=== PATIENT | male | born 1975 | race Caucasian/White ===

== ENCOUNTER 2022-05-09 17:59 | Emergency (ER) | payer SELFPAY ==
[~2022-05-09] VITALS: Ht 180.3 cm; Wt 111.9 kg
[2022-05-09 19:31] LABS: Urine Bacteria NONE SEEN /hpf (None Seen); Urine Blood Negative /uL (Negative); Urine Hyaline Cast FEW /lpf (0 - 2); Urine Mucus FEW (None Seen); Urine Specific Gravity 1.016 (1.001-1.035); Urine WBC <1 /hpf (0 - 3)
[2022-05-09 19:53] LABS: Basophils # (auto) 0 10 ^3/uL (0-0.2); Basophils % (auto) 0.8 % (0.0-2.0); Eosinophils # (auto) 0 10 ^3/uL (0-0.8); Eosinophils % (auto) 0.5 % (0.0-7.0); Hematocrit 41.3 % (41.0-53.0); Hemoglobin 14.4 g/dL (13.5-17.5); Lymphocytes # (auto) 1.2 10 ^3/uL (0.4-5.4); Lymphocytes % (auto) 22.6 % (10.0-50.0); Mean Corpuscular Hemoglobin 32.4 pg (28.0-32.0); Mean Corpuscular Hgb Conc. 34.8 g/dL (32.0-36.0); Mean Corpuscular Volume 92.9 fL (80.0-100.0); Monocytes # (auto) 0.5 10 ^3/uL (0-1.3); Monocytes % (auto) 8.5 % (0.0-12.0); Neutrophils # (auto) 3.7 10 ^3/uL (1.6-8.6); Neutrophils % (auto) 67.6 % (37.0-80.0); Nucleated Red Blood Cells % 0.1 %; Red Blood Cells 4.44 10^6/uL (4.5-5.90); Red Cell Distribution Width 12.5 % (11.8-14.3); White Blood Cell 5.5 10^3/uL (4.4-10.8)
[2022-05-09] MEDS ORDERED: IOHEXOL 350 MG/ML 100ML IJ ONE (20:03)
[2022-05-09 20:08] LABS: Albumin 3.7 g/dL (3.4-5.0); Calcium 9.3 mg/dL (8.5-10.1); Potassium 3.9 mmol/L (3.5-5.1)
[2022-05-09 20:12] LABS: BUN/Creatinine Ratio 12.2; Bilirubin, Total 0.6 mg/dL (0.2-1.0); Total Protein 7.2 g/dL (6.4-8.2)
[2022-05-09] MEDS ORDERED: ONDA-144 PO (20:38)
[2022-05-09] MEDS ORDERED: HYDR1TAB97 PO (20:38)
[2022-05-09] MEDS ORDERED: ONDANSETRON HCL 4 MG/2 ML VIAL BC ONE (20:45)
[2022-05-09] MEDS ORDERED: HYDROcodone-ACET 5/325MG TAB PO ONE (20:45)
[2022-05-09 23:47] VITALS: BP 130/60
== END 2022-05-09 22:53 | disposition home or self-care (01) ==
LOC: ER 17:59
DX: K42.9 Umbilical hernia without obstruction or gangrene (principal); R11.2 Nausea with vomiting, unspecified; R19.7 Diarrhea, unspecified
CPT/HCPCS: 36415; 74177; 80053; 81001; 83605; 83690; 85025; 99285; Q9967

== ENCOUNTER 2024-04-29 10:28 | Inpatient (IN) | payer MEDICAID, OTHER ==
[~2024-04-29] VITALS: Ht 182.9 cm; Wt 93.1 kg
[~2024-04-29 10:28] MED LIST: HYDR1TAB97 PO; ONDA-144 PO
[2024-04-29 11:53] LABS: Basophils # (auto) 0.1 10 ^3/uL (0-0.2); Eosinophils # (auto) 0.2 10 ^3/uL (0-0.8); Eosinophils % (auto) 2.1 % (0.0-7.0); Hematocrit 42.8 % (41.0-53.0); Hemoglobin 14.8 g/dL (13.5-17.5); Lymphocytes # (auto) 1.9 10 ^3/uL (0.4-5.4); Lymphocytes % (auto) 23.9 % (10.0-50.0); Mean Corpuscular Hemoglobin 30.9 pg (28.0-32.0); Mean Corpuscular Hgb Conc. 34.7 g/dL (32.0-36.0); Mean Corpuscular Volume 89.1 fL (80.0-100.0); Monocytes # (auto) 0.6 10 ^3/uL (0-1.3); Monocytes % (auto) 7.2 % (0.0-12.0); Neutrophils # (auto) 5.3 10 ^3/uL (1.6-8.6); Neutrophils % (auto) 65.8 % (37.0-80.0); Nucleated Red Blood Cells % 0.1 %; Red Cell Distribution Width 13.2 % (11.8-14.3)
[2024-04-29 12:10] LABS: Alanine Aminotransferase 42 U/L (7-40); Albumin 4.3 g/dL (3.2-4.8); Alkaline Phosphatase 85 U/L (46-116); Anion Gap 6 (5-15); Aspartate Aminotransferase 18 U/L (13-40); BUN/Creatinine Ratio 7.3 (10.0-20.0); Bilirubin, Total 0.5 mg/dL (0.2-1.0); Blood Urea Nitrogen 7 mg/dL (9-23); Calcium 9.6 mg/dL (8.7-10.4); Carbon Dioxide 28 mmol/L (20-30); Chloride 107 mmol/L (98-107); Glucose 120 mg/dL (74-106); Lipase 47 U/L (12-53); Potassium 4.4 mmol/L (3.5-5.1); Sodium 141 mmol/L (136-145); Total Protein 7.1 g/dL (5.7-8.2)
[2024-04-29] MEDS: PANTOPRAZOLE 40 MG/10 ML VIAL INJ IV ONE (13:04)
[2024-04-29] MEDS: ONDANSETRON HCL 4 MG/2 ML VIAL IV ONE (13:04)
[2024-04-29] MEDS: MORPHINE SULFATE 4 MG/ML SYR/VIAL IV ONE (13:05)
[2024-04-29] MEDS: SODIUM CHLORIDE 0.9% 500 ML IVB ONE (13:05)
[2024-04-29 13:25] VITALS: PULSE 84; RESP 18; O2SAT 98
[2024-04-29] MEDS ORDERED: HYDROmorphone HCL 2 MG/ML VL/or syr IV PRN (16:15)
[2024-04-29] MEDS ORDERED: ONDANSETRON HCL 4 MG/2 ML VIAL IV PRN (16:15)
[2024-04-29] MEDS ORDERED: ACETAMINOPHEN 325 MG TAB PO PRN (16:15)
[2024-04-29] MEDS ORDERED: HYDROcodone-ACET 5/325MG TAB PO PRN (16:15)
[2024-04-29 16:31] LABS: Urine Bacteria None Seen /hpf (None Seen)
[2024-04-29] MEDS: LACTATED RINGER'S 1,000 ML IV ONE (16:43)
[2024-04-29] MEDS: cefTRIAXone 1GM/50ML D5W 50 ML IV SCH (16:44)
[2024-04-29] MEDS: metroNIDAZOLE 500MG/100ML 100 ML IV SCH (16:44)
[2024-04-29 16:49] LABS: Triglycerides 231 mg/dL (< 150)
[2024-04-29 16:50] LABS: LDL Cholesterol 155 mg/dL (< 100)
[2024-04-29 16:51] LABS: Cholesterol 218 mg/dL (< 200); HDL Cholesterol 46 mg/dL (40-59)
[2024-04-29 16:58] LABS: Urine Blood Negative /uL (Negative); Urine Clarity Clear (Clear); Urine Color Light-Yellow (Yellow); Urine Protein, UAD Negative (Negative); Urine Specific Gravity > 1.050 (1.001-1.035); Urine Urobilinogen Normal (Negative); Urine WBC <1 /hpf (0 - 3); Urine pH 5.5 (5.0-9.0)
[2024-04-29 17:26] LABS: INR 0.92 (0.9-1.15); Prothrombin Time 9.8 sec (9.3-11.8)
[2024-04-29 18:47] VITALS: BP 119/58; PULSE 50; RESP 18; TEMP 97.7; O2SAT 97
[2024-04-29] MEDS ORDERED: SODIUM CHLOR 0.9% PF (SALINE LOCK) 10ML VIAL/SYR IV SCH (22:00)
[2024-04-30] MEDS ORDERED: ENOXAPARIN SOD 40 MG/0.4 ML SYRINGE SC SCH (10:00)
== END 2024-04-29 19:40 | disposition left against medical advice (07) | DRG 254 ==
LOC: ER 10:28 → OVERFLOW 16:17
PROVIDERS: ADMIT Internal Medicine; ATTEND Internal Medicine
DX: K42.9 Umbilical hernia without obstruction or gangrene (principal); K52.9 Noninfective gastroenteritis and colitis, unspecified; Z53.29 Procedure and treatment not carried out because of patient's decision for other reasons
CPT/HCPCS: 36415; 74177; 76705; 80053; 80061; 81001; 83036; 83605; 83690; 85025; 85610; 86850; 86900; 86901; 96361; 96374; 96375; G0378; J2405; J2470; J3490